=== PATIENT | male | born 1985 | race Caucasian/White ===

== ENCOUNTER 2021-03-06 15:26 | Emergency (ER) | payer OTHER ==
[~2021-03-06] VITALS: Ht 185.4 cm; Wt 90.7 kg
[2021-03-06 16:03] VITALS: BP 119/20
--- NOTE | 2021-03-06 16:32 | NUR ---
35 years old male alert, oriented x4 presents to er c/o left ankle pain/injury today able to walk with pain.
[2021-03-06] MEDS ORDERED: IBUP-1955 PO (17:16)
[2021-03-06] MEDS ORDERED: IBUPROFEN 600 MG TABLET ONE (17:29)
[2021-03-06] MEDS ORDERED: IBUPROFEN 600 MG TABLET PO ONE (17:30)
--- NOTE | 2021-03-06 17:30 | NUR ---
patient condition stable d/c home with instructions after care reviewed understood left er with prescription.
== END 2021-03-06 17:32 | disposition home or self-care (01) ==
LOC: ER 15:26
DX: S93.492A Sprain of other ligament of left ankle, initial encounter (principal); W01.0XXA Fall on same level from slipping, tripping and stumbling without subsequent striking against object, initial encounter; Y93.89 Activity, other specified; Y92.89 Other specified places as the place of occurrence of the external cause; Y99.8 Other external cause status
CPT/HCPCS: 73590-TC; 73610-TC